=== PATIENT | male | born 1980 | race Caucasian/White ===

== ENCOUNTER 2020-12-28 14:55 | Emergency (ER) | payer OTHER ==
[~2020-12-28] VITALS: Ht 182.9 cm; Wt 102.2 kg
--- NOTE | 2020-12-28 16:26 | REP ---
INDICATION: left testicle swelling. COMPARISON: None. TECHNIQUE: Real-time sonographic evaluation of scrotum and contents performed. FINDINGS: The testicles are normal in size and echotexture, right testicle measuring 3.3 x 2.0 x 2.6 cm and left testicle 3.1 x 1.9 x 2.4 cm. There is no testicular mass or torsion. Blood flow is seen in each testicle with duplex Doppler evaluation. Subcentimeter cysts are seen in the head of each epididymis, on the right measuring 5 and 7 mm in maximum diameter and on the left measuring 6 and 8 mm in maximum diameter. There are small bilateral hydroceles. IMPRESSION: No testicular mass or torsion. Subcentimeter cysts in each epididymis. Small bilateral hydroceles. <Electronically signed by Costa Kapoor > 12/28/20 [id number]
--- NOTE | 2020-12-28 17:12 | REP ---
INDICATION: left flank pain COMPARISON: None. TECHNIQUE: CT Scan of the abdomen and pelvis was performed without intravenous contrast. Sagittal and coronal reconstruction images performed. FINDINGS: Lung bases: Unremarkable. Liver: Grossly unremarkable. Gallbladder: Unremarkable. Spleen: Grossly unremarkable.. Adrenals: Normal. Pancreas: Grossly unremarkable.. Kidneys: No hydronephrosis or nephrolithiasis. Ureters demonstrate no dilatation or calculus. There is an exophytic nodule of the lower pole the left kidney 1.2 cm in diameter. This is measuring slightly greater than water density and is not definitely a simple cyst. Small and large bowel: Grossly unremarkable. Free fluid: None. Abdominal aorta: No aneurysm. Adenopathy: None. Appendix: Not inflamed. Osseous structures: There are degenerative changes of the spine without compression deformity. Pelvis: No mass. No bladder calculus seen. IMPRESSION: No renal or ureteral calculus. No hydroureteronephrosis. Exophytic nodule lower pole left kidney 1.2 cm in diameter. Density measurements are somewhat greater than water, in the range of 27 Hounsfield units, and therefore this likely represents a complex cyst or solid nodule. Recommend follow-up dedicated MRI of the kidneys with and without contrast. <Electronically signed by Costa Kapoor > 12/28/20 [id number]
[2020-12-28 17:20] LABS: CHLAMYDIA DNA AMPLIFICATION NEGATIVE (NEGATIVE); GC DNA AMPLIFICATION NEGATIVE (NEGATIVE)
[2020-12-28 17:43] VITALS: BP 160/102
== END 2020-12-28 17:47 | disposition home or self-care (01) ==
LOC: M ED 14:55
DX: N43.3 Hydrocele, unspecified (principal); N45.1 Epididymitis; Z88.0 Allergy status to penicillin

== ENCOUNTER → 2024-08-05 | Outpatient (CLI) | payer BC, OTHER ==
[~2024-08-05] MED LIST: ISOVUE-370 76% 100ML VIAL As Ordered ONE
== END ==
LOC: M RAD 13:33
PROVIDERS: ATTEND Nurse Practitioner Family
DX: N28.1 Cyst of kidney, acquired (principal)
CPT/HCPCS: 74170; Q9967